=== PATIENT | male | born 1990 | race Caucasian/White ===

== ENCOUNTER 2016-04-22 17:44 | Emergency (ER) | payer OTHER ==
[2016-04-22 17:52] VITALS: BP 128/78
--- NOTE | 2016-04-22 20:47 | ED ---
Onel Brewer Rebecca, scribed for Abelardo Pool MD on 04/22/16 at 1807 . Allergic Reaction/Systemic - HPI Summary HPI Summary: Pt is a 25 y/o M who presents to ED c/o allergic reaction s/p Cyndy [place] ingestion. At 1630, 1.5 hours after taking [place]dy [place] he began experiencing right eye swelling and red rash on the face which have been present and improving since onset. Sx alleviated by ice pack application and aggravated by nothing. Denies throat tightening and difficulty breathing. Denies any pain. No PMHx eczema, asthma. - History of Current Complaint Chief Complaint: EDAllergicReaction Time Seen by Provider: 04/22/16 18:01 Hx Obtained From: Patient Onset/Duration: Sudden Onset, Still Present Timing: Constant Severity Currently: None Pain Intensity: 0 Pain Scale Used: 0-10 Numeric Character: Swelling - Right eye Aggravating Factor(s): Nothing Alleviating Factor(s): Cold Associated Signs And Symptoms: Positive: Rash - face. Negative: Difficulty Breathing, Throat Tightening - Related Hx Possible Reaction To: Medications - Cyndy [place] - Allergies/Home Medications Allergies/Adverse Reactions: Allergies Allergy/AdvReac Type Severity Reaction Status Date / Time Aspirin Allergy Eyes Verified 04/22/16 17:50 [From Cyn[place] Extra Itchy/Swollen/Red/Watery Strength] Citric Acid Allergy Eyes Verified 04/22/16 17:50 [From Cyn[place] Extra Itchy/Swollen/Red/Watery Strength] Sodium Bicarbonate Allergy Eyes Verified 04/22/16 17:50 [From Cyndy[place] Extra Itchy/Swollen/Red/Watery Strength] PMH/Surg Hx/FS Hx/Imm Hx Endocrine/Hematology History: Denies: Hx Diabetes Cardiovascular History: Denies: Hx Hypertension, Hx Pacemaker/ICD Respiratory History: Denies: Hx Asthma History: Denies: Hx Renal Disease Sensory History: Denies: Hx Hearing Aid Psychiatric History: Denies: Hx Panic Disorder - Surgical History Surgery Procedure, Year, and Place: WISDOM TEETH Infectious Disease History: No Infectious Disease History: Denies: Traveled Outside the [place] in Last 30 Days - Family History Known Family History: Negative: Cardiac Disease, Hypertension, Diabetes - Social History Alcohol Use: Rare Substance Use Type: Reports: None Smoking Status (MU): Never Smoked Tobacco Review of Systems Positive: Other - Riht eye swelling Positive: Other - Denies throat tightening or difficulty swallowing Positive: Rash - Facial All Other Systems Reviewed And Are Negative: Yes Physical Exam - Summary Physical Exam Summary: General: Comfortable, pleasant, alert HEENT: Moist mucosa, no lip, tongue or pharyngeal swelling. There is a little bit of swelling over the R lower eyelid and cheek. Neck: Soft, supple, no adenopathy, no edema Heart: S1, S2, RRR, no murmurs, rubs, or gallops Lungs: Clear to auscultation, breathing comfortable, no wheezes or rales, no stridor Abdominal: Soft, flat, nontender Extremities: No edema, no calf tenderness Neuro: Alert and oriented x 3 Psych: Logical, coherent Triage Information Reviewed: Yes Vital Signs On Initial Exam: Initial Vitals Temp Pulse Resp BP Pulse Ox 98.6 F 74 18 128/78 99 04/22/16 17:50 04/22/16 17:50 04/22/16 17:50 04/22/16 17:50 04/22/16 17:50 Vital Signs Reviewed: Yes Diagnostics - Vital Signs Vital Signs Temp Pulse Resp BP Pulse Ox 04/22/16 17:50 98.6 F 74 18 128/78 99 - Laboratory Lab Statement: Any lab studies that have been ordered have been reviewed, and results considered in the medical decision making process. Allergic Reaction Course/Dx - Course Assessment/Plan: Localized allergic reaction to the eyelid. No signs of conjunctivitis or FB as he does not have pain, irritation or light sensitivity. He has no worrisome findings such as tachycardia or signs of angioedema or respiratory involvement. Benadryl PRN. - Diagnoses Provider Diagnoses: GENERAL ALLERGIC REACTION Discharge - Discharge Plan Condition: Good Disposition: HOME Patient Education Materials: General Allergic Reaction (ED) Referrals: Lakshmi Gordon, OFFICE MACHINE SERVICER APPRENTICE [Primary Care Provider] - Additional Instructions: benadryl as needed. The documentation as recorded by the Onel corley Rebecca accurately reflects the service I personally performed and the decisions made by , Abelardo Pool MD.
== END 2016-04-22 18:55 | disposition home or self-care (01) ==
LOC: ED 17:44
DX: T78.40XA Allergy, unspecified, initial encounter (principal); X58.XXXA Exposure to other specified factors, initial encounter; Y92.9 Unspecified place or not applicable
CPT/HCPCS: 99281

== ENCOUNTER 2016-06-02 17:55 | Emergency (ER) | payer OTHER ==
[2016-06-02 18:07] VITALS: BP 136/88
--- NOTE | 2016-06-02 19:12 | ED ---
Throat Pain/Nasal Congestion - HPI Summary HPI Summary: Pt here w/ Rt under eye swelling 1 hour after taking advil earlier today. This lasted for about 2 hours then resolved. Denies itching, other areas of swelling , trouble breathing/swallowing, rash, change in vision, ocular d/c or irritation as well as MONGE, nasal d/c, otalgia, neck pain, fever, chills, N/V/D. Reports this has happened 2 times before, both when he took products w/ NSAID's included. Reports he's taken advil his whole life and not sure why this would bother him now. He personally has seasonal allergies and take daily generic OTC long acting anti-histamine No other family members w/ allergies or angioedema. - History of Current Complaint Chief Complaint: EDEyeProblem Time Seen by Provider: 06/02/16 18:17 Hx Obtained From: Patient - Allergies/Home Medications Allergies/Adverse Reactions: Allergies Allergy/AdvReac Type Severity Reaction Status Date / Time Aspirin Allergy Eyes Verified 04/22/16 17:50 [From [place] Extra Itchy/Swollen/Red/Watery Strength] Citric Acid Allergy Eyes Verified 04/22/16 17:50 [From Cyndy[place] Extra Itchy/Swollen/Red/Watery Strength] Sodium Bicarbonate Allergy Eyes Verified 04/22/16 17:50 [From Cyndy[place] Extra Itchy/Swollen/Red/Watery Strength] PMH/Surg Hx/FS Hx/Imm Hx Previously Healthy: Yes Endocrine/Hematology History: Denies: Hx Anticoagulant Therapy, Hx Blood Disorders, Hx Diabetes, Hx Thyroid Disease, Hx Anemia, Autoimmune Disease Cardiovascular History: Denies: Hx Hypertension, Hx Pacemaker/ICD Respiratory History: Reports: Hx Seasonal Allergies Denies: Hx Asthma, Hx Chronic Bronchitis History: Denies: Hx Renal Disease Sensory History: Denies: Hx Hearing Aid Psychiatric History: Denies: Hx Panic Disorder - Surgical History Surgery Procedure, Year, and Place: WISDOM TEETH Infectious Disease History: No Infectious Disease History: Denies: Traveled Outside the [place] in Last 30 Days - Family History Known Family History: Positive: None Negative: Cardiac Disease, Hypertension, Diabetes - Social History Lives: With Family Alcohol Use: Rare Hx Substance Use: No Substance Use Type: Reports: None Hx Tobacco Use: No Smoking Status (MU): Never Smoked Tobacco Review of Systems Constitutional: Negative Negative: Fever, Chills Eyes: Negative Negative: Photophobia, Blurred Vision, Diplopia, Drainage, Erythema ENT: Negative Cardiovascular: Negative Negative: Chest Pain Respiratory: Negative Negative: Shortness Of Breath Gastrointestinal: Negative Negative: Abdominal Pain, Vomiting, Diarrhea, Nausea Positive: no symptoms reported Musculoskeletal: Negative Skin: Other - see HPI Neurological: Negative Psychological: Normal All Other Systems Reviewed And Are Negative: Yes Physical Exam Triage Information Reviewed: Yes Vital Signs On Initial Exam: Initial Vitals Temp Pulse Resp BP Pulse Ox 99.4 F 74 18 136/88 98 06/02/16 17:58 06/02/16 17:58 06/02/16 17:58 06/02/16 17:58 06/02/16 17:58 Vital Signs Reviewed: Yes Appearance: Positive: Well-Appearing, No Pain Distress - concerned, Well- Nourished Skin: Positive: Warm, Dry - mild blue hue of skin beneath B/L eyes- Lt w/ very subtle edema compared to Rt - NTTP; no raheel erythema, vesicles, induration, ocular d/c Head/Face: Positive: Normal Head/Face Inspection - sinuses NTTP - no facial swelling noted Eyes: Positive: Normal, EOMI, MASTER, Conjunctiva Clear. Negative: Conjunctiva Inflammed, Discharge ENT: Positive: Hearing grossly normal, Pharynx normal, TMs normal. Negative: Nasal congestion, Nasal drainage Neck: Positive: Supple, Nontender, No Lymphadenopathy Respiratory/Lung Sounds: Positive: Clear to Auscultation, Breath Sounds Present. Negative: Stridor, Wheezes Cardiovascular: Positive: Normal, RRR Abdomen Description: Positive: Nontender, Soft Musculoskeletal: Positive: Normal, Strength/ROM Intact Neurological: Positive: Normal, Sensory/Motor Intact, Alert, Oriented to Person Place, Time, CN Intact II-III Psychiatric: Positive: Affect/Mood Appropriate - somewhat flat affect, Anxious - concerned - [place] Coma Scale Coma Scale Total: 15 Diagnostics - Vital Signs Vital Signs Temp Pulse Resp BP Pulse Ox 06/02/16 17:58 99.4 F 74 18 136/88 98 - Laboratory Lab Statement: Any lab studies that have been ordered have been reviewed, and results considered in the medical decision making process. EENT Course/Dx - Course Course Of Treatment: Discussed possible diagnosis of angioedema. Pt's clinical presentation at this time is unremarkable for any pathology, but given his HPI and h/o similar sx 2 x before w/ taking NSAID products, reviewed the possibility of having angioedema. Encouraged pt to restart antihistamines as soon as he gets home (offered today but he's driving). Also reviewed importance of f/u w/ PCP and discussed danger s/sx of when to return to ED. Pt voices understanding and agrees w/ plan. - Diagnoses Provider Diagnoses: Boggy skin texture Discharge - Discharge Plan Condition: Stable Disposition: HOME Patient Education Materials: Angioedema (ED) Referrals: Laksmhi Gordon, BUMBOATER [Primary Care Provider] - Additional Instructions: It is suspected that you are having angioedema symptoms triggered by NSAID's. Avoid use of NSAID's and follow-up with PCP this week - call Sunday to schedule an appointment. *If in the meantime you develop return of facial/oral swelling with difficulty swallowing or breathing, return to ED immediately
== END 2016-06-02 19:12 | disposition home or self-care (01) ==
LOC: ED 17:55
DX: R23.8 Other skin changes (principal)
CPT/HCPCS: 99281

== ENCOUNTER → 2016-12-04 07:16 | Emergency (ER) | payer OTHER ==
[~2016-12-04 07:16] MED LIST: ALPRAZolam TAB* 0.5 MG PO ONE
--- NOTE | 2016-12-04 08:30 | RAD ---
Indication: Feeling anxious, shaking. Comparison: September 30, 2012 MRI brain. Technique: Noncontrast CT vertex of skull through foramen magnum. Report: The sulci, ventricles, and basal cisterns are normal for age. Morin matter white matter differentiation is preserved without evidence for edema. No intra or extra axial hemorrhage, mass, or fluid collection detected. Unremarkable visualized orbital contents. Unremarkable calvarium and skull base. Unremarkable scalp. The visualized paranasal sinuses and mastoid air spaces are clear. IMPRESSION: No acute intracranial process evident. Negative unenhanced head CT.
[2016-12-04 08:43] LABS: Hematocrit 44 % (42-52); Hemoglobin 15.5 g/dl (14.0-18.0); Mean Corpuscular HGB Conc 36 g/dl (31-36); Mean Corpuscular Hemoglobin 30 pg (27-31); Mean Corpuscular Volume 85 fL (80-94); Mean Platelet Volume 8 um3 (7.4-10.4); Red Blood Count 5.11 10^6/ul (4.0-5.4); Red Cell Distribution Width 13 % (10.5-15); White Blood Count 5.6 10^3/ul (3.5-10.8)
[2016-12-04 08:56] LABS: ALT 28 U/L (7-52); AST 20 U/L (13-39); Albumin 4.6 g/dL (3.2-5.2); Alkaline Phosphatase 58 U/L (34-104); Anion Gap 6 mmol/L (2-11); BUN/Creatinine Ratio 14.9 (8-20); Blood Urea Nitrogen 14 mg/dL (6-24); CO2 Carbon Dioxide 25 mmol/L (22-32); Calcium 10.1 mg/dL (8.6-10.3); Chloride 105 mmol/L (101-111); Creatine Kinase 108 U/L (10-223); EGFR African American 125.8 (>60); EGFR Non-African American 97.8 (>60); Globulin 2.5 g/dL (2-4); Glucose 103 mg/dL (70-100); Potassium 3.5 mmol/L (3.5-5.0); Sodium 136 mmol/L (133-145); Total Protein 7.1 g/dL (6.4-8.9)
[2016-12-04 08:57] LABS: Comments Flag Yes
[2016-12-04 09:11] LABS: Acetaminophen < 15 mcg/mL; Alcohol < 10 mg/dL (<10); Salicylate < 2.50 mg/dL (<30)
[2016-12-04 09:21] LABS: TSH (Thyroid Stimulating Horm) 2.95 mcIU/mL (0.34-5.60)
[2016-12-04 10:50] LABS: Urine Bilirubin Negative (Negative); Urine Glucose Negative (Negative); Urine Nitrite Negative (Negative)
[2016-12-04 11:06] LABS: Benzodiazepine Urine Screen None Detected (None Detect)
[2016-12-04 14:02] VITALS: BP 102/62
--- NOTE | 2016-12-04 15:53 | ED ---
Daryl Brewer Angela, scribed for Bentley Shell on 12/04/16 at 0749 . Psychiatric Complaint - HPI Summary HPI Summary: This pt is a 26 y/o male accompanied byt his parents presenting [place] [facility] c/o anxiousness that began today at around 6:00 AM. Pt states he was fine last night and went to bed around 3:00 AM today. He woke up at 6:00 AM and started to have a weird feeling that began in his legs, described as numbness. Pt reports he was shaking and felt anxious. He walked around his room to alleviate his symptoms but he had no relief. Pt had some water and started burping a little, so took a Gas-X. He went to his mothers room and fell over forward ( which he does not remember) but remembers his mother calling out for his father and calling 911. Per mother, pt kept counting to keep himself alerted. He denies LOC or head strike. Pt notes this is the first time this has happened to him. He denies pain, confusion, headache, chest pain, SOB, priority sx, hx of anxiety or panic attack. He reports feeling some light-headedness. Pt denies drugs and alcohol. No pertinent PMHx. Pt lives with his parents. - History Of Current Complaint Time Seen by Provider: 12/04/16 07:22 Hx Obtained From: Patient, Family/Template Cutter - mother and father Timing: Constant Aggravating Factor(s): Nothing Associated Signs And Symptoms: Positive: Sleep Disturbance. Negative: Hostile, Confused, Hallucinating, Paranoid Behavior Related History: Negative For: Prior Psychiatric Issues, Drug Abuse Counseling, Admissions Related To Substance Abuse Has Suicidal: Denies: Thoughts, With A Plan Has Homicidal: Denies: Thoughts, With A Plan - Allergies/Home Medications Allergies/Adverse Reactions: Allergies Allergy/AdvReac Type Severity Reaction Status Date / Time Aspirin Allergy Eyes Verified 04/22/16 17:50 [From Cyndy[place] Extra Itchy/Swollen/Red/Watery Strength] Citric Acid Allergy Eyes Verified 04/22/16 17:50 [From Cyndy-[place] Extra Itchy/Swollen/Red/Watery Strength] Sodium Bicarbonate Allergy Eyes Verified 04/22/16 17:50 [From Cyndy-[place] Extra Itchy/Swollen/Red/Watery Strength] PMH/Surg Hx/FS Hx/Imm Hx Endocrine/Hematology History: Denies: Hx Anticoagulant Therapy, Hx Blood Disorders, Hx Diabetes, Hx Thyroid Disease, Hx Anemia Cardiovascular History: Denies: Hx Hypertension, Hx Pacemaker/ICD Respiratory History: Reports: Hx Seasonal Allergies Denies: Hx Asthma, Hx Chronic Bronchitis History: Denies: Hx Renal Disease Sensory History: Denies: Hx Hearing Aid Psychiatric History: Denies: Hx Panic Disorder - Surgical History Surgery Procedure, Year, and Place: WISDOM TEETH Infectious Disease History: No Infectious Disease History: Denies: Traveled Outside the [place] in Last 30 Days - Family History Known Family History: Positive: None Negative: Cardiac Disease, Hypertension, Diabetes - Social History Alcohol Use: Rare Hx Substance Use: No Substance Use Type: Reports: None Hx Tobacco Use: No Smoking Status (MU): Never Smoked Tobacco Review of Systems Positive: Other - shaking, burping. Negative: Fever, Chills Eyes: Negative Negative: Chest Pain Negative: Shortness Of Breath Negative: Abdominal Pain, Vomiting, Diarrhea Genitourinary: Negative Positive: no symptoms reported Negative: Rash, Bruising Negative: Headache, Weakness, Numbness Positive: Anxious All Other Systems Reviewed And Are Negative: Yes Physical Exam Triage Information Reviewed: Yes Vital Signs On Initial Exam: Initial Vitals Temp Pulse Resp BP Pulse Ox 98.2 F 108 20 123/91 100 12/04/16 07:39 12/04/16 07:39 12/04/16 07:39 12/04/16 07:39 12/04/16 07:39 Vital Signs Reviewed: Yes Appearance: Positive: Well-Appearing, No Pain Distress Skin: Positive: Warm, Skin Color Reflects Adequate Perfusion, Dry Head/Face: Positive: Normal Head/Face Inspection Eyes: Positive: EOMI, MASTER ENT: Positive: Normal ENT inspection Neck: Positive: Supple, Nontender Respiratory/Lung Sounds: Positive: Clear to Auscultation, Breath Sounds Present Cardiovascular: Positive: RRR, Pulses are Symmetrical in both Upper and Lower Extremities Abdomen Description: Positive: Nontender, Soft Bowel Sounds: Positive: Present Musculoskeletal: Positive: Normal, Strength/ROM Intact Neurological: Positive: Normal, Sensory/Motor Intact, Alert, Oriented to Person Place, Time Psychiatric: Positive: Anxious - [place] Coma Scale [place] Coma Scale Comments: GCS: 15 Diagnostics - Vital Signs Vital Signs Temp Pulse Resp BP Pulse Ox 12/04/16 07:39 98.2 F 108 20 123/91 100 - Laboratory Result Diagrams: 12/04/16 08:25 12/04/16 08:25 Lab Statement: Any lab studies that have been ordered have been reviewed, and results considered in the medical decision making process. - CT Brain CT CT Interpretation: No Acute Changes - IMPRESSION: No acute intracranial process evident. Negative unenhanced head CT. ED physician has reviewed this radiology report and agrees. CT Interpretation Completed By: Radiologist Course/Dx - Course Assessment/Plan: This pt is a 26 y/o male accompanied byt his parents presenting to [facility] c/o anxiousness that began today at around 6:00 AM. Pt states he was fine last night and woke up at 6:00 AM and started to have a weird feeling that began in his legs, described as numbness. Pt reports he was shaking and felt anxious. Lab work, UA, and drug screen were obtained. In the ED course, pt was given Xanax. Pt was medically cleared at 11:38. He was evaluated by mental health provider and cleared. Pt will be discharged with diagnosis of anxiety. - Differential Dx/Clinical Impression Provider Diagnosis: Anxiety Discharge - Discharge Plan Condition: Stable Disposition: HOME Referrals: Lakshmi Gordon, PIPE RACKER [Primary Care Provider] - The documentation as recorded by the Daryl corley Angela accurately reflects the service I personally performed and the decisions made by , Bentley Shell.
== END | disposition home or self-care (01) ==
LOC: ED 07:16
DX: F41.9 Anxiety disorder, unspecified (principal)
CPT/HCPCS: 36415; 70450; 80053; 80307; 80320; 80329; 81003; 82550; 84443; 85025; 99284; A9270-GY; G0480

== ENCOUNTER 2017-04-29 04:28 | Emergency (ER) | payer OTHER ==
[2017-04-29] MEDS ORDERED: NS 0.9% 1000 ML* 1,000 ML IV ONE (05:08)
[2017-04-29] MEDS ORDERED: Metoclopramide IV* 5 MG/ML 2 ML VIAL IV ONE (05:08)
[2017-04-29] MEDS ORDERED: Ketorolac INJ* 30 MG/ML 1 ML VIAL IV PUSH ONE (05:08)
[2017-04-29] MEDS ORDERED: diPHENhydraMINE IV* 50 MG/ML 1 ml VIAL (BENADRYL) IV ONE (05:08)
[2017-04-29 06:02] LABS: ABS Basophils 0 10^3/ul (0-0.2); ABS Eosinophils 0.1 10^3/ul (0-0.6); ABS Lymphocytes 0.7 10^3/ul (1.0-4.8); ABS Monocytes 0.9 10^3/ul (0-0.8); ABS Neutrophils 10.1 10^3/ul (1.5-7.7); ABS Nucleated RBC 0 10^3/ul; Eosinophil % 0.8 % (0-6); Hematocrit 43 % (42-52); Hemoglobin 15.2 g/dl (14.0-18.0); Lymphocyte % 6.1 % (25-47); Mean Corpuscular HGB Conc 36 g/dl (31-36); Mean Corpuscular Hemoglobin 30 pg (27-31); Mean Corpuscular Volume 84 fL (80-94); Mean Platelet Volume 8 um3 (7.4-10.4); Nucleated Red Blood Cells % 0; Platelet Count 219 10^3/ul (150-450); Red Blood Count 5.08 10^6/ul (4.0-5.4); Red Cell Distribution Width 13 % (10.5-15); White Blood Count 11.9 10^3/ul (3.5-10.8)
[2017-04-29 06:13] LABS: EGFR Non-African American 116.1 (>60)
[2017-04-29 06:34] VITALS: BP 135/77
--- NOTE | 2017-04-29 06:58 | ED ---
Kevin Brewer Tecjoon, scribed for Jas Canales MD on 04/29/17 at 0513 . Abdominal Pain/Male - HPI Summary HPI Summary: This patient is a 26 year old male presenting [place] [facility] accompanied by friend with a chief complaint of mid abd pain since approx. 2 hours ago. The pain is rated 9/10 in severity. Symptoms aggravated by nothing. Symptoms alleviated by nothing. Patient additionally reports nausea, diarrhea. Patient denies vomiting , urinary problems, cough, fever. - History of Current Complaint Chief Complaint: EDAbdPain Stated Complaint: STOMACH PAIN Time Seen by Provider: 04/29/17 04:30 Hx Obtained From: Patient Onset/Duration: Lasting Hours, Still Present Timing: Constant Severity Currently: Severe Pain Intensity: 9 Pain Scale Used: 0-10 Numeric Location: Other - mid abdomen Aggravating Factor(s): Nothing Alleviating Factor(s): Nothing Associated Signs And Symptoms: Positive: Negative - vomiting, urinary problems, cough, fever, Other - nausea, diarrhea - Allergies/Home Medications Allergies/Adverse Reactions: Allergies Allergy/AdvReac Type Severity Reaction Status Date / Time Aspirin Allergy Eyes Verified 04/22/16 17:50 [From Cyndy-[place] Extra Itchy/Swollen/Red/Watery Strength] Citric Acid Allergy Eyes Verified 04/22/16 17:50 [From Cyndy-[place] Extra Itchy/Swollen/Red/Watery Strength] Sodium Bicarbonate Allergy Eyes Verified 04/22/16 17:50 [From Cyndy-[place] Extra Itchy/Swollen/Red/Watery Strength] PMH/Surg Hx/FS Hx/Imm Hx Previously Healthy: Yes Endocrine/Hematology History: Denies: Hx Anticoagulant Therapy, Hx Blood Disorders, Hx Diabetes, Hx Thyroid Disease, Hx Anemia Cardiovascular History: Denies: Hx Hypertension, Hx Pacemaker/ICD Respiratory History: Reports: Hx Seasonal Allergies Denies: Hx Asthma, Hx Chronic Bronchitis History: Denies: Hx Renal Disease Sensory History: Denies: Hx Hearing Aid Psychiatric History: Denies: Hx Eating Disorder, Hx Panic Disorder, Hx of Violent Episodes Against Others - Surgical History Surgery Procedure, Year, and Place: WISDOM TEETH Infectious Disease History: No Infectious Disease History: Denies: Traveled Outside the [place] in Last 30 Days - Family History Known Family History: Negative: Cardiac Disease, Hypertension, Diabetes - Social History Alcohol Use: Rare Hx Substance Use: No Substance Use Type: Reports: None Hx Tobacco Use: No Smoking Status (MU): Never Smoked Tobacco Review of Systems Negative: Fever Negative: Cough Positive: Abdominal Pain, Diarrhea, Nausea. Negative: Vomiting Genitourinary: Negative - "any urinary problems" All Other Systems Reviewed And Are Negative: Yes Physical Exam - Summary Physical Exam Summary: Appearance: Well appearing, no pain distress Skin: warm, dry, reflects adequate perfusion Head/face: normal Eyes: EOMI, MASTER ENT: normal Neck: supple, non-tender Respiratory: CTA, breath sounds present Cardiovascular: RRR, pulses symmetrical Abdomen: non-tender, soft Bowel: present Musculoskeletal: normal, strength/ROM intact Neuro: normal, sensory motor intact, A&Ox3 Triage Information Reviewed: Yes Vital Signs On Initial Exam: Initial Vitals Temp Pulse Resp BP Pulse Ox 97.9 F 87 16 112/81 99 04/29/17 04:31 04/29/17 04:31 04/29/17 04:31 04/29/17 04:31 04/29/17 04:31 Vital Signs Reviewed: Yes Diagnostics - Vital Signs Vital Signs Temp Pulse Resp BP Pulse Ox 04/29/17 04:31 97.9 F 87 16 112/81 99 - Laboratory Lab Results: Lab Results 04/29/17 04/29/17 Range/Units 05:40 05:40 WBC 11.9 H (3.5-10.8) 10^3/ul RBC 5.08 (4.0-5.4) 10^6/ul Hgb 15.2 (14.0-18.0) g/dl Hct 43 (42-52) % MCV 84 (80-94) fL MCH 30 (27-31) pg MCHC 36 (31-36) g/dl RDW 13 (10.5-15) % Plt Count 219 (150-450) 10^3/ul MPV 8 (7.4-10.4) um3 Neut % (Auto) 85.3 H (38-83) % Lymph % (Auto) 6.1 L (25-47) % Mclennan % (Auto) 7.6 (1-9) % Eos % (Auto) 0.8 (0-6) % Baso % (Auto) 0.2 (0-2) % Absolute Neuts (auto) 10.1 H (1.5-7.7) 10^3/ul Absolute Lymphs (auto) 0.7 L (1.0-4.8) 10^3/ul Absolute Monos (auto) 0.9 H (0-0.8) 10^3/ul Absolute Eos (auto) 0.1 (0-0.6) 10^3/ul Absolute Basos (auto) 0 (0-0.2) 10^3/ul Absolute Nucleated RBC 0 10^3/ul Nucleated RBC % 0 Sodium 138 (133-145) mmol/L Potassium 3.6 (3.5-5.0) mmol/L Chloride 104 (101-111) mmol/L Carbon Dioxide 26 (22-32) mmol/L Anion Gap 8 (2-11) mmol/L BUN 19 (6-24) mg/dL Creatinine 0.81 (0.67-1.17) mg/dL Est GFR ( Amer) 149.3 (>60) Est GFR (Non-Af Amer) 116.1 (>60) BUN/Creatinine Ratio 23.5 H (8-20) Glucose 104 H (70-100) mg/dL Calcium 10.1 (8.6-10.3) mg/dL Total Bilirubin 0.80 (0.2-1.0) mg/dL AST 21 (13-39) U/L ALT 23 (7-52) U/L Alkaline Phosphatase 60 (34-104) U/L Total Protein 7.4 (6.4-8.9) g/dL Albumin 4.8 (3.2-5.2) g/dL Globulin 2.6 (2-4) g/dL Albumin/Globulin Ratio 1.8 (1-3) Lipase 12 (11.0-82.0) U/L Result Diagrams: 04/29/17 05:40 04/29/17 05:40 Lab Statement: Any lab studies that have been ordered have been reviewed, and results considered in the medical decision making process. Re-Evaluation - Re-Evaluation First Eval Change: Improved - feeling much better Abdominal Pain Fem Course/Dx - Course Course Of Treatment: Pt with abrupt onset of nausea and mult loose stools. Some cramping but no focal abd tenderness. Labs bening. RLQ benign. Treated symptomatically with relief. Rx for sx. F/U PMD. - Diagnoses Differential Diagnosis/HQI/PQRI: Appendicitis, Bowel Obstruction, Pancreatitis, Other - AGE Provider Diagnoses: Acute gastroenteritis Discharge - Discharge Plan Condition: Good Disposition: HOME Prescriptions: Hyoscyamine Sulfate [Hyoscyamine Sulfate Odt] 0.125 mg PO Q6H PRN #20 tab PRN Reason: cramping Ondansetron ODT TAB* [Zofran 4 MG Odt TAB*] 4 mg PO Q8H PRN #12 tab.odt PRN Reason: Nausea Patient Education Materials: Gastroenteritis (ED) Forms: *Work Release Referrals: Lakshmi Gordon, FURNITURE CRATER [Primary Care Provider] - Additional Instructions: Grant diet, drink plenty of fluids. Return if worse, unable to keep down fluids , high fevers, pain in the right lower abdomen or other concerns. The documentation as recorded by the Kevin corley Tecjoon accurately reflects the service I personally performed and the decisions made by Parker sotelo Kirk, MD.
== END 2017-04-29 06:47 | disposition home or self-care (01) ==
LOC: ED 04:28
DX: K52.9 Noninfective gastroenteritis and colitis, unspecified (principal); J30.2 Other seasonal allergic rhinitis; Z88.8 Allergy status to other drugs, medicaments and biological substances
CPT/HCPCS: 36415; 80053; 83690; 85025; 96374; 96375; 99282; J1200; J1885; J2765

== ENCOUNTER → 2017-08-31 12:47 | Day surgery (SDC) | payer OTHER ==
[~2017-08-31 12:47] MED LIST changes: -ALPRAZolam TAB* 0.5 MG PO ONE; +Acetaminophen TAB* 325 MG PO PRN; +Buffered Lidocaine 0.9% SYRIN* 5 ML/SYR SYRINGE INTRADERM ONE; +Dexamethasone IV* 4 MG/ML 1 ML (4 MG) ONE; +DiMENhydriNATE IV* 50 MG/ML VIAL IV PUSH PRN; +Famotidine IV* 10 MG/ML 2 ML (20 mg) ONE; +Lidocain 1% EPI 1:100,000 * 30 ML MDV ONE; +Metoclopramide IV* 5 MG/ML 2 ML VIAL ONE; +Midazolam* 1 MG/ML 2 ML VIAL (2 MG) ONE; +Naloxone* 0.4 MG/ML 1 ML VIAL IV PRN; +Ondansetron ODT TAB* 4 MG PO PRN; +Oxymetazoline 0.05% NASAL SPR* 15 ML BTL ONE; +PROCHLORPERAZINE INJ 5 MG/ML 2 ML VIAL IV PRN; +Propofol* 10 MG/ML 20 ML BTL IV PUSH ONE; +ceFAZolin 2 GM PREMIX (*) 2 GM/50 ML BAG IVPB ONE; +fentaNYL* 50 MCG/ML 2 ML VIAL (100 MCG VIAL) ONE; +oxyCODONE TAB* 5 MG TAB ONE
[2017-08-31] MEDS: fentaNYL* 50 MCG/ML 2 ML VIAL (100 MCG VIAL) IV PRN ×3 (16:21→16:55)
[2017-08-31 17:28] VITALS: BP 118/79
--- NOTE | 2017-09-01 12:56 | OP ---
DATE OF OPERATION: 08/31/17 - SDS DATE OF : 89 SURGEON: Bi Rosen MD PRE-OP DIAGNOSIS: Septal deviation, inferior turbinate hypertrophy. POST-OP DIAGNOSIS: Septal deviation, inferior turbinate hypertrophy. OPERATIVE PROCEDURE: Nasal septoplasty and submucous resection of the inferior turbinates bilaterally under general laryngeal mask airway anesthesia. COMPLICATIONS: None. DISPOSITION: Good. SPECIMENS: None. ESTIMATED BLOOD LOSS: Minimal. DESCRIPTION OF PROCEDURE: The patient was taken to the operating room, placed in the supine position on the operating table. General anesthesia was induced, maintained with laryngeal mask airway anesthesia. His nose was packed bilaterally with cottonoids, impregnated with oxymetazoline, 4% lidocaine. After he was draped for the surgery, after several minutes the packs were removed, and his septum and turbinates were injected with 1% lidocaine with 1: 100,000 epinephrine. Hemitransfixion incision made in the right anterior septum. Mucoperichondrial flap was raised. Bony cartilaginous junction was opened. Posterior contralateral flap was raised. Double action scissors were used to make a cut towards the superior aspect of the bony cartilage removed with the Oliver. A freer knife was used to make an incision to remove a window of the posterior cartilaginous septum and then this area of cartilage was elevated off the mucosa and removed and later morselized to be placed back in the septum. Spurring along the maxillary crest was broken loose and removed with the Oliver. The hemitransfixion incision was closed with a 4-0 chromic and then a 4-0 gut quilting stitch was placed. Incisions were made in the anterior and inferior turbinates. A Lauro elevator was used to raise the mucosa off the bone and the turbinate debrider was used to debride the submucosa. These were then outfractured. Magnetic splint smeared with bacitracin was placed and sutured in place with Prolene. The patient tolerated this procedure well, no complications, and transferred to the recovery room in stable condition. [id number]/[facility] #: [id number] ELICEO
== END | disposition home or self-care (01) ==
LOC: OR 12:47
PROVIDERS: ATTEND Otolaryngology
DX: J34.2 Deviated nasal septum (principal); J34.3 Hypertrophy of nasal turbinates; Q23.1 Congenital insufficiency of aortic valve; J30.89 Other allergic rhinitis; M51.27 Other intervertebral disc displacement, lumbosacral region
CPT/HCPCS: A9270-GY; J0690; J1100; J2250; J2704; J2765; J3010